=== PATIENT | female | born 1995 | race Caucasian/White ===

== ENCOUNTER 2016-07-20 22:41 | Emergency (ER) | payer OTHER ==
[~2016-07-20] VITALS: Ht 175.3 cm; Wt 101.2 kg
[~2016-07-20 22:41] MED LIST: ABILIFY30 MG PO; ATARAX,VISTARIL25 MG PO; LAMICTAL150 MG PO; LITHIUM CARBON150 MG PO; MACROBID100 MG PO; VYVANSE50 MG PO; latuda
[2016-07-20 22:43] VITALS: BP 107/74
[2016-07-20 23:08] LABS: HEMATOCRIT 39.1 % (36.0-46.0); MCH 27.9 PG (29.0-34.0); MCV 82.1 FL (83-99); MEAN PLAT.VOLUME 10.9 uM^3 (9.5-12.4); PLATELET COUNT 237 K/uL (156-360); RBC DIS.WIDTH-CV 14.1 % (11.8-14.6); RBC DIS.WIDTH-SD 41.5 % (39-53); RED BLOOD COUNT 4.76 M/uL (3.80-5.20); WHITE BLOOD COUNT 8.3 K/uL (4.1-10.2)
[2016-07-20 23:17] LABS: CHLORIDE 108 mEq/L (99-109); POTASSIUM 3.9 mEq/L (3.7-5.4); SODIUM 140 mEq/L (136-147)
[2016-07-20 23:18] LABS: GLUCOSE 103 mg/dL (70-99)
[2016-07-20 23:20] LABS: ANION GAP 12 MEQ/L (2-14)
[2016-07-20 23:21] LABS: SERUM ETHYL ALCOHOL < 10 mg/dL
[2016-07-20 23:22] LABS: GFR ESTIMATE (CALCULATED) > 59 mL/min/
[2016-07-20 23:23] LABS: UREA NITROGEN (BUN) 13 mg/dL (9-23)
[2016-07-20 23:25] LABS: AMPHETAMINE NEGATIVE (500 ng/mL); BARBITURATES NEGATIVE (200 ng/mL); BENZODIAZEPINES NEGATIVE (150 ng/mL); COCAINE NEGATIVE (150 ng/mL); INTERNAL CONTROLS VALID? YES; METHADONE NEGATIVE (200 ng/mL); METHAMPHETAMINE NEGATIVE (500 ng/mL); OPIATES (MORPHINE) NEGATIVE (100 ng/mL); OXYCODONE NEGATIVE (100 ng/mL); PHENCYCLIDINE NEGATIVE (25 ng/mL); PROPOXYPHENE NEGATIVE (300 ng/mL); THC CANNABINOIDS NEGATIVE (50 ng/mL); TRICYCLIC ANTIDEPRESSANTS NEGATIVE (300 ng/mL)
[2016-07-20 23:31] LABS: QUANTITATIVE HCG < 4.0 MIU/ML
== END 2016-07-21 11:15 ==
LOC: EME 22:41
DX: F31.81 Bipolar II disorder (principal); F41.1 Generalized anxiety disorder; F17.200 Nicotine dependence, unspecified, uncomplicated
CPT/HCPCS: 80048; 84702; 85027; 90837; 99281; 99283; G0480

== ENCOUNTER 2017-04-16 20:10 | Emergency (ER) | payer OTHER ==
[~2017-04-16] VITALS: Ht 177.8 cm; Wt 103.3 kg
[2017-04-16 21:25] LABS: HEMATOCRIT 43.1 % (36.0-46.0); MCHC 32.9 G/DL (30.0-36.0); MCV 84.8 FL (83-99); MEAN PLAT.VOLUME 10.8 uM^3 (9.5-12.4); PLATELET COUNT 249 K/uL (156-360); RBC DIS.WIDTH-CV 13.7 % (11.8-14.6); RBC DIS.WIDTH-SD 42.5 % (39-53); RED BLOOD COUNT 5.08 M/uL (3.80-5.20); WHITE BLOOD COUNT 7.9 K/uL (4.1-10.2)
[2017-04-16 21:34] LABS: CHLORIDE 109 mEq/L (99-109); POTASSIUM 3.8 mEq/L (3.7-5.4); SODIUM 141 mEq/L (136-147)
[2017-04-16 21:37] LABS: GLUCOSE 89 mg/dL (70-99)
[2017-04-16 21:38] LABS: ANION GAP 9 MEQ/L (2-14); TOTAL BILIRUBIN 0.3 mg/dL (0.0-1.0)
[2017-04-16 21:40] LABS: ALKALINE PHOSPHATASE 130 IU/L (3-129); GFR ESTIMATE (CALCULATED) > 59 mL/min/
[2017-04-16 21:41] LABS: UREA NITROGEN (BUN) 9 mg/dL (9-23)
[2017-04-16 21:53] LABS: QUANTITATIVE HCG < 4.0 MIU/ML
[2017-04-16 22:18] LABS: ADD MIUA? YES; BILIRUBIN NEGATIVE; BLOOD NEGATIVE; COLOR YELLOW ((YELLOW)); GLUCOSE (STRIP) NEGATIVE; KETONES 5; LEUKOCYTES MODERATE; NITRITE NEGATIVE; PROTEIN (STRIP) 30; SPECIFIC GRAVITY 1.028 (1.000-1.030); UROBILINOGEN 0.2 MG/DL (0.2-1.0)
[2017-04-16 22:51] LABS: EPITHELIAL CELLS 2+ /HPF; RED BLOOD CELLS RARE /HPF (0-5)
[2017-04-16 22:52] LABS: BACTERIA 2+ /HPF; CALCIUM OXALATE CRYSTALS 2+ /HPF; CRYSTALS PRESENT; MUCUS 2+ /LPF; UCUL ADDED? YES
[2017-04-16] MEDS ORDERED: CIPRO500 MG PO (23:13)
[2017-04-16 23:30] VITALS: BP 130/76
== END 2017-04-16 23:31 | disposition home or self-care (01) ==
LOC: EME 20:10
DX: N39.0 Urinary tract infection, site not specified (principal); G89.29 Other chronic pain; R10.2 Pelvic and perineal pain; Z88.0 Allergy status to penicillin; F17.200 Nicotine dependence, unspecified, uncomplicated
CPT/HCPCS: 80053; 81003; 84702; 85027; 87086; 99281; 99284

== ENCOUNTER 2017-04-26 21:36 | Emergency (ER) | payer OTHER ==
[~2017-04-26] VITALS: Ht 177.8 cm; Wt 102.6 kg
[~2017-04-26 21:36] MED LIST changes: +CIPRO500 MG PO
[2017-04-27 00:07] LABS: BASOPHIL COUNT 0.1 K/uL (0-0.1); EOSINOPHIL (%) 1.9 % (0-5); EOSINOPHIL COUNT 0.2 K/uL (0-0.3); HEMATOCRIT 41.7 % (36.0-46.0); IMMATURE GRANULOCYTE (%) 0.3 % (0.0-0.7); INSTRUMENT ABS NEUTROPHIL CT 6.2 K/uL; LYMPHOCYTE COUNT 2.6 K/uL (1.0-2.8); MCH 28.1 PG (29.0-34.0); MCHC 33.1 G/DL (30.0-36.0); MCV 84.9 FL (83-99); MEAN PLAT.VOLUME 11.7 uM^3 (9.5-12.4); MONOCYTE (%) 4.9 % (3-12); MONOCYTE COUNT 0.5 K/uL (0-0.8); NEUTROPHIL COUNT 6.2 K/uL (1.8-6.4); PLATELET COUNT 244 K/uL (156-360); RBC DIS.WIDTH-CV 14.1 % (11.8-14.6); RBC DIS.WIDTH-SD 43.6 % (39-53); RED BLOOD COUNT 4.91 M/uL (3.80-5.20); WHITE BLOOD COUNT 9.6 K/uL (4.1-10.2)
[2017-04-27 00:08] LABS: AMPHETAMINE NEGATIVE (500 ng/mL); BARBITURATES NEGATIVE (200 ng/mL); BENZODIAZEPINES NEGATIVE (150 ng/mL); COCAINE NEGATIVE (150 ng/mL); INTERNAL CONTROLS VALID? YES; METHADONE NEGATIVE (200 ng/mL); METHAMPHETAMINE NEGATIVE (500 ng/mL); OPIATES (MORPHINE) NEGATIVE (100 ng/mL); OXYCODONE NEGATIVE (100 ng/mL); PHENCYCLIDINE NEGATIVE (25 ng/mL); PROPOXYPHENE NEGATIVE (300 ng/mL); THC CANNABINOIDS NEGATIVE (50 ng/mL); TRICYCLIC ANTIDEPRESSANTS NEGATIVE (300 ng/mL)
[2017-04-27 00:18] LABS: CHLORIDE 108 mEq/L (99-109); POTASSIUM 3.4 mEq/L (3.7-5.4); SODIUM 141 mEq/L (136-147)
[2017-04-27 00:20] LABS: GLUCOSE 83 mg/dL (70-99)
[2017-04-27 00:22] LABS: ANION GAP 13 MEQ/L (2-14)
[2017-04-27 00:23] LABS: SERUM ETHYL ALCOHOL < 10 mg/dL
[2017-04-27 00:24] LABS: GFR ESTIMATE (CALCULATED) > 59 mL/min/
[2017-04-27 00:25] LABS: UREA NITROGEN (BUN) 10 mg/dL (9-23)
[2017-04-27 00:33] LABS: TROP-I INTERPRETATION NEGATIVE; TROPONIN-I < 0.01 ng/mL (0.0-0.30)
[2017-04-27 00:34] LABS: QUANTITATIVE HCG < 4.0 MIU/ML
[2017-04-27 01:06] VITALS: BP 132/93
== END 2017-04-27 01:06 | disposition left against medical advice (07) ==
LOC: EME 21:36
PROVIDERS: Emergency Medicine
DX: F41.1 Generalized anxiety disorder (principal); R00.0 Tachycardia, unspecified; F43.22 Adjustment disorder with anxiety; F31.81 Bipolar II disorder; R51 Headache; R06.02 Shortness of breath; F17.200 Nicotine dependence, unspecified, uncomplicated; Z53.20 Procedure and treatment not carried out because of patient's decision for unspecified reasons
CPT/HCPCS: 71010; 80048; 84484; 84702; 85025; 85379; 90839; 93005; 99281; 99284; G0480